=== PATIENT | female | born 2000 | race Two or more races ===

== ENCOUNTER → 2019-12-04 | Outpatient (CLI) | payer OTHER | END | disposition home or self-care (01) | LOC: PRENATAL 10:00 | PROVIDERS: ATTEND Obstetrics & Gynecology Maternal & Fetal Medicine | DX: O35.0XX1 Maternal care for (suspected) central nervous system malformation in fetus, fetus 1 (principal); O35.3XX1 Maternal care for (suspected) damage to fetus from viral disease in mother, fetus 1; Z36.89 Encounter for other specified antenatal screening; Z3A.23 23 weeks gestation of pregnancy ==

== ENCOUNTER 2020-03-05 10:55 | Inpatient (IN) | payer OTHER ==
[~2020-03-05] VITALS: Ht 165.1 cm; Wt 74.8 kg
[2020-03-25] MEDS ORDERED: FOLIC ACID20 MG PO (06:25)
[2020-03-25] MEDS ORDERED: PRENATAL TABLE1 EAC1 PO (06:25)
== END 2020-03-27 14:00 | disposition home or self-care (01) | DRG 788 ==
LOC: LDR 03-25 06:06 → OB/GYN 03-25 06:06 → O/R 03-25 18:03 → OB/GYN 03-25 19:31
PROVIDERS: ADMIT Obstetrics & Gynecology; ATTEND Obstetrics & Gynecology
PROC: 10907ZC Drainage of Amniotic Fluid, Therapeutic from Products of Conception, Via Natural or Artificial Opening (ICD-10-PCS; 2020-03-25)
PROC: 3E033VJ Introduction of Other Hormone into Peripheral Vein, Percutaneous Approach (ICD-10-PCS; 2020-03-25)
PROC: 4A1HXFZ Monitoring of Products of Conception, Cardiac Rhythm, External Approach (ICD-10-PCS; 2020-03-25)
PROC: 10D00Z1 Extraction of Products of Conception, Low, Open Approach (ICD-10-PCS; principal; 2020-03-25 16:00)
DX: O33.8 Maternal care for disproportion of other origin (principal); O61.0 Failed medical induction of labor; Z86.16 Personal history of COVID-19; Z3A.39 39 weeks gestation of pregnancy; Z37.0 Single live birth; Z20.822 Contact with and (suspected) exposure to COVID-19